=== PATIENT | male | born 1990 | race Caucasian/White ===

== ENCOUNTER 2017-08-26 19:54 | Emergency (ER) | payer BC ==
[2017-08-26] MEDS ORDERED: Ibuprofen 800 MG Tab PO ONE (20:50)
--- NOTE | 2017-08-26 20:52 | EDM.PDOC ---
ED HPI GENERAL MEDICAL PROBLEM - General Chief Complaint: Chest Pain Stated Complaint: CHEST PAIN Time Seen by Provider: 08/26/17 20:21 Source of Information: Reports: Patient History Limitations: Reports: No Limitations - History of Present Illness INITIAL COMMENTS - FREE TEXT/NARRATIVE: Patient is a 27 y/o male who presents to the E.D. complaining of intermittent chest pain for the past 3 to 4 wks. Pain is located to the center of his chest with no known precipitating factors. Today states he was at work and with bending over developed the pain. Unlike other days it appears the pain is worsened with palpation. Described as a achy/sharp pain. Hes just recently developed viral upper respiratory symptoms. This includes: sinus congestion, runny nose, and post nasal gtt. He has acid reflux and states as of recent has increased. He denies taking any medications. Consumes two cups of coffee daily with 2 energy drinks. Smokes 1 ppd. Denies sore throat, sob, fever, cough, n/v, abdominal pain, diarrhea, and or any other complaints. Denies rec drug use. Alcohol use occasionally. Chest Pain Score (Numeric/FACES): 4 - Related Data Allergies Allergy/AdvReac Type Severity Reaction Status Date / Time No Known Allergies Allergy Verified 08/26/17 20:02 Home Meds: Home Meds . [No Known Home Meds] 08/26/17 [History] Past Medical History - Past Health History Medical/Surgical History: Denies Medical/Surgical History Social & Family History - Tobacco Use Smoking Status *Q: Current Every Day Smoker Years of Tobacco use: 10 Packs/Tins Daily: 1 - Caffeine Use Caffeine Use: Reports: Coffee, Energy Drinks, Soda - Recreational Drug Use Recreational Drug Use: No ED ROS GENERAL - Review of Systems Review Of Systems: ROS reveals no pertinent complaints other than HPI. Constitutional: Reports: No Symptoms HEENT: Reports: Rhinitis, Sinus Problem. Denies: Ear Pain, Throat Pain, Throat Swelling Respiratory: Reports: Pleuritic Chest Pain. Denies: Shortness of Breath, Wheezing, Cough, Sputum, Hemoptysis Cardiovascular: Denies: Chest Pain, Dyspnea on Exertion, Palpitations, PND, Syncope GI/Abdominal: Reports: No Symptoms Musculoskeletal: Reports: No Symptoms ED EXAM, GENERAL - Physical Exam Exam: See Below Exam Limited By: No Limitations General Appearance: Alert, WD/WN, No Apparent Distress Ears: Hearing Grossly Normal Nose: Normal Inspection, Nasal Swelling, Nasal Drainage, Clear Rhinorrhea. No: Nasal Tenderness Throat/Mouth: Normal Inspection, Normal Oropharynx, Normal Voice, No Airway Compromise Head: Atraumatic, Normocephalic Neck: Normal Inspection, Supple, Non-Tender, Full Range of Motion Respiratory/Chest: No Respiratory Distress, Lungs Clear, Normal Breath Sounds, No Accessory Muscle Use, Other (Tenderness along the left sternal border approximately 3& 4th intercostal space. Pain is worse with palpation and also with abduction and abduction of the arms against resistance.) Cardiovascular: Normal Peripheral Pulses, Regular Rate, Rhythm, No Murmur Peripheral Pulses: 4+: Radial (L), Radial (R) GI/Abdominal: Normal Bowel Sounds, Soft, Non-Tender, No Organomegaly, No Distention Back Exam: Normal Inspection Neurological: Alert, Oriented, CN II-XII Intact, Normal Cognition, No Motor/ Sensory Deficits Psychiatric: Normal Affect, Normal Mood Skin Exam: Warm, Dry, Intact, Normal Color, No Rash Course - Vital Signs Last Recorded V/S: Last Vital Signs Temp 97.3 F 08/26/17 19:58 Pulse 90 08/26/17 19:58 Resp 18 08/26/17 19:58 BP 143/88 H 08/26/17 19:58 Pulse Ox 100 08/26/17 19:58 - Orders/Labs/Meds Meds: Medications Discontinued Medications Generic Name Dose Route Start Last Admin Trade Name Freq PRN Reason Stop Dose Admin Ibuprofen 800 mg 08/26/17 20:50 08/26/17 20:59 Motrin PO 08/26/17 20:51 800 mg ONETIME ONE Administration - Re-Assessments/Exams Free Text/Narrative Re-Assessment/Exam: Will obtain EKG and chest x-ray. I ordered 800 mg of ibuprofen by mouth. Suspect cause of discomfort is more costochondritis. CXR: normal cxr Reviewed with Dr. Mitchell. EKG: Sinus rhythm rate of 78. LVH pattern normal for age. Diffuse early repolarization pattern. Suspect cause of pain is chestwall in origin. Will discharge patient home with instructions as documented. Departure - Departure Time of Disposition: 21:24 Disposition: Home, Self-Care 01 Condition: Good Clinical Impression: Costochondral chest pain Instructions: Chest Wall Pain, [id number], Nonspecific Chest Pain Referrals: PCP,None [Primary Care Provider] - Forms: ED Department Discharge Additional Instructions: Take ibuprofen 600mg every 6 hrs and tylenol 650 mg every 6 hrs in alternating fashion. Refrain any activities that cause worsening pain. Followup with a Family Medicine Provider at [facility] for reevaluation in 1 to2 wks and to establish care. STOP SMOKING. Return to the E.D. if you develop any new or worsening symptoms.
--- NOTE | 2017-08-27 06:59 | CR ---
Chest: Portable view of the chest was obtained. Comparison: No previous study. Heart size and mediastinum are normal. Lungs are clear. Bony structures are grossly intact. Impression: 1. Nothing acute is seen on portable chest x-ray. Diagnostic code #1
== END 2017-08-26 21:30 | disposition home or self-care (01) ==
LOC: JD.ED 19:54
DX: R07.1 Chest pain on breathing (principal); F17.210 Nicotine dependence, cigarettes, uncomplicated
CPT/HCPCS: 71045; 93005; 99285; A9270